=== PATIENT | female | born 1940 | race Caucasian/White ===

== ENCOUNTER 2019-01-22 12:56 | Outpatient (CLI) | payer MEDICARE ==
[~2019-01-22] VITALS: Ht 165.1 cm; Wt 68.0 kg
[2019-01-22 13:31] LABS: TOTAL HEMOGLOBIN 13.3 G/dl (12.0-16.0)
[2019-01-22] MEDS ORDERED: albuterol 2.5 MG/3 ML nebule NEB ONE (13:35)
== END 2019-01-22 23:59 | disposition home or self-care (01) ==
LOC: RT 12:56
PROVIDERS: ATTEND Internal Medicine
DX: J44.9 Chronic obstructive pulmonary disease, unspecified (principal)
CPT/HCPCS: 85018; 94060; 94727; 94729; 94760

== ENCOUNTER 2024-06-24 10:43 | Emergency (ER) | payer MEDICARE | END 2024-06-24 10:54 | disposition left against medical advice (07) | LOC: ER 10:44 | DX: Z53.21 Procedure and treatment not carried out due to patient leaving prior to being seen by health care provider (principal) ==

== ENCOUNTER 2024-08-02 11:08 | Emergency (ER) | payer MEDICARE ==
[~2024-08-02] VITALS: Ht 165.1 cm; Wt 56.8 kg
[2024-08-02 11:20] VITALS: TEMP 97.6
[2024-08-02 14:45] LABS: CLARITY,URINE CLEAR (Clear); COLOR,URINE ORANGE (Yellow)
[2024-08-02 14:49] LABS: BASOPHILS # (AUTO) 0.1 X10'3 (0-0.2); BASOPHILS % (AUTO) 1.1 % (0-1); EOSINOPHILS # (AUTO) 0.1 X10'3 (0-0.9); EOSINOPHILS % (AUTO) 2.2 % (0-6); HEMATOCRIT 38.5 % (35.0-45.0); HEMOGLOBIN 12.8 g/dl (12.0-16.0); LYMPHOCYTES # (AUTO) 1.4 X10'3 (1.1-4.8); LYMPHOCYTES % (AUTO) 22.6 % (21-51); MEAN CORPUSCULAR HEMOGLOBIN 31.7 PG (27.0-31.0); MEAN CORPUSCULAR HGB CONC 33.2 g/dL (33.0-36.5); MEAN CORPUSCULAR VOLUME 95.5 FL (78-98); MEAN PLATELET VOLUME 7.6 FL (7.4-10.4); MONOCYTES # (AUTO) 0.4 X10'3 (0-0.9); MONOCYTES % (AUTO) 7.1 % (2-12); PLATELET COUNT 274 X10'3 (140-440); RED BLOOD COUNT 4.03 X10'6 (4.20-5.60); RED CELL DISTRIBUTION WIDTH 13.6 % (11.5-14.5)
[2024-08-02 14:53] LABS: UA COLLECTION TYPE NON-SPECIFIED
[2024-08-02 14:56] LABS: BACTERIA,URINE FEW /HPF (Neg); MUCUS STRANDS FEW /LPF (Neg); RBC,URINE 0-2 /HPF (0-2); SQUAMOUS EPITHELIAL CELL,UR FEW /LPF (FEW); WBC,URINE 0-4 /HPF (0-4)
[2024-08-02 15:05] LABS: ALANINE AMINOTRANSFERASE 22 U/L (12-78); ALBUMIN 3.6 G/DL (3.4-5.0); ALBUMIN/GLOBULIN RATIO 1.1 (1.1-1.5); ALKALINE PHOSPHATASE 76 IU/L (46-116); ANION GAP 5 (8-16); ASPARTATE AMINO TRANSFERASE 21 U/L (10-37); BILIRUBIN,TOTAL 0.3 MG/DL (0.1-1.0); BLOOD UREA NITROGEN 13 MG/DL (7-18); BUN/CREATININE RATIO 15.9 (10.0-20.0); CALCIUM 9.4 MG/DL (8.5-10.1); CHLORIDE 108 MMOL/L (99-107); CREATININE 0.82 MG/DL (0.40-0.90); GLUCOSE 97 MG/DL (70-104); LIPASE 33 U/L (16-77); POTASSIUM 3.8 MMOL/L (3.5-5.1); SODIUM 144 MMOL/L (135-145); TOTAL CARBON DIOXIDE 30.7 MMOL/L (24-32); TOTAL PROTEIN 6.9 G/DL (6.4-8.2); eCRCL 47 ML/MIN; eGFR 67 ML/MIN
[2024-08-02 15:16] VITALS: BP 144/72; PULSE 68; O2SAT 96
[2024-08-02 15:17] VITALS: RESP 16
[2024-08-02] MEDS: ketorolac trometh 15mg/ml vial 15 MG/ML ML IM ONE (15:17)
== END 2024-08-02 15:43 | disposition home or self-care (01) ==
LOC: ER 11:08
DX: R10.2 Pelvic and perineal pain (principal); Z88.0 Allergy status to penicillin; Z88.3 Allergy status to other anti-infective agents; Z88.5 Allergy status to narcotic agent
CPT/HCPCS: 36415; 80053; 81001; 83690; 85025; 96372; 99283; J1885

== ENCOUNTER 2024-08-26 06:35 | Outpatient (CLI) | payer MEDICARE | END 2024-08-26 23:59 | disposition home or self-care (01) | LOC: MRI02 06:35 | PROVIDERS: ATTEND Nurse Practitioner Adult Health | DX: M47.24 Other spondylosis with radiculopathy, thoracic region (principal); M47.22 Other spondylosis with radiculopathy, cervical region; M54.2 Cervicalgia; M79.602 Pain in left arm; R07.89 Other chest pain | CPT/HCPCS: 72146 ==